=== PATIENT | male | born 1945 | race Caucasian/White ===

== ENCOUNTER 2017-11-06 10:30 | Emergency (ER) | payer MEDICARE ==
[~2017-11-06] VITALS: Ht 182.9 cm; Wt 93.0 kg
[~2017-11-06 10:30] MED LIST: ASPI325T PO; DOCU1CAP39 PO; MILKSUS5 PO; SUPETAB30 PO; VITA10004 PO; VITA500015 PO; XARE10TA PO
[2017-11-06 10:32] VITALS: BP 128/87; PULSE 105; RESP 18; TEMP 97.4; O2SAT 98
[2017-11-06 10:52] VITALS: BP 111/74; PULSE 112; RESP 22; O2SAT 99
[2017-11-06] MEDS ORDERED: SODIUM CHLORIDE 0.9% FLUSH 10 ML FLUSH IVF PRN (11:00)
[2017-11-06] MEDS ORDERED: methylPREDNISolone SOD SUCC 125 MG/2 ML VIAL IV PUSH ONE (11:00)
[2017-11-06] MEDS: RESP: ALBUTEROL 2.5 MG/IPRATROPIUM 0.5 MG NEB (SCH) INH (11:50)
--- NOTE | 2017-11-06 11:52 | RADRPT ---
EXAM DATE/TIME: 11/06/2017 11:14 [place] COMPARISON: No previous studies available for comparison. INDICATIONS : Chest pressure MEDICAL HISTORY : Chronic obstructive pulmonary disease. SURGICAL HISTORY : None. ENCOUNTER: Initial ACUITY: 1 day PAIN SCORE: 2/10 LOCATION: chest FINDINGS: A single view of the chest demonstrates the lungs to be symmetrically aerated without evidence of mas s, infiltrate or effusion. The cardiomediastinal contours are unremarkable. Osseous structures are intact. CONCLUSION: No acute disease. rBian Narayanan MD on November 06, 2017 at 11:49 Board Certified Radiologist. This report was verified electronically.
[2017-11-06 11:55] VITALS: O2SAT 99
[2017-11-06 12:51] VITALS: BP 104/55; PULSE 110; RESP 18; O2SAT 99
[2017-11-06 13:01] LABS: AUTOMATED NEUTROPHIL # 3.3 TH/MM3 (1.8-7.7); BASOPHIL % 0.4 % (0.0-2.0); EOSINOPHIL # 0.2 TH/MM3 (0-0.4); EOSINOPHIL % 3.6 % (0.0-4.0); HEMOGLOBIN 13.8 GM/DL (13.0-17.0); LYMPH % 34.1 % (9.0-44.0); MEAN CELL VOLUME 92.1 FL (80.0-100.0); MEAN CORPUSCULAR HEMOGLOBIN 31.7 PG (27.0-34.0); MEAN CORPUSCULAR HGB CONC 34.4 % (32.0-36.0); MEAN PLATELET VOLUME 9.2 FL (7.0-11.0); MONO % 6.3 % (0.0-8.0); MONOCYTE # 0.4 TH/MM3 (0-0.9); NEUT % 55.6 % (16.0-70.0); PLATELET COUNT 212 TH/MM3 (150-450); RED BLOOD COUNT 4.35 MIL/MM3 (4.50-5.90); RED CELL DISTRIBUTION WIDTH 12.7 % (11.6-17.2); WHITE BLOOD COUNT 5.9 TH/MM3 (4.0-11.0)
--- NOTE | 2017-11-06 13:16 | PD ---
HPI . Chest pain shortness of breath Chief Complaint: Cardiac Complaint Time Seen by Provider: 10:46 Travel History International Travel<30 days: No Contact w/Intl Traveler<30days: No Traveled to known affect area: No History of Present Illness HPI The patient presents with a chief complaint of chest pain shortness of breath for the last 2 weeks. Symptoms have been constant. He denies fever. He reports sputum production but has not looked at it. He rates his chest pain as 6-7/10. There are no modifying factors. This patient does have a history of COPD. He states that he uses albuterol nebs twice a day. He does not take any other medications for his COPD. PFSH Past Medical History Arthritis: Yes Asthma: No Heart Rhythm Problems: Yes (HX OF AFIB POSTOP) Cancer: No Cardiovascular Problems: Yes (HX AFIB-ABLATION) High Cholesterol: No Chest Pain: No Congestive Heart Failure: No COPD: No Cerebrovascular Accident: No Diabetes: No Endocrine: No Gastrointestinal Disorders: No GERD: No Glaucoma: No Genitourinary: No Hepatitis: No Hiatal Hernia: No Hypertension: No Immune Disorder: No Medical other: No Musculoskeletal: Yes (ARTHRITIS,NECK PAIN, BACK PROBLEMS) Neurologic: No Psychiatric: Yes (CLAUSTRAPHOBIA) Reproductive: No Respiratory: No Thyroid Disease: No Past Surgical History Abdominal Surgery: Yes (RIGHT INGUINAL HERNIA) AICD: No Appendectomy: Yes Body Medical Devices: CARDIAC STENT Cardiac Surgery: Yes (ABLATION; ) Ear Surgery: No Endocrine Surgery: No Eye Surgery: No Genitourinary Surgery: No Gynecologic Surgery: No Joint Replacement: Yes (LEFT KNEE) Neurologic Surgery: No Oral Surgery: Yes (T&A) Pacemaker: No Thoracic Surgery: No Tonsillectomy: Yes (T&A) Other Surgery: Yes Social History Alcohol Use: No Tobacco Use: No (Quit 02/2009) Substance Use: No Allergies-Medications (Allergen,Severity, Reaction): Coded Allergies: penicillin G (Unverified Allergy, Severe, Rash, 03/23/17) Reported Meds & Prescriptions Reported Meds & Active Scripts Active Review of Systems Except as stated in HPI: all other systems reviewed are Neg General / Constitutional: No: Fever, Chills Cardiovascular: Positive: Chest Pain or Discomfort Respiratory: Positive: Cough, Shortness of Breath Physical Exam Narrative GENERAL: The patient does not appear to be in any distress. He is lucid. SKIN: warm/dry. Normal color and turgor. HEAD: Normocephalic. Atraumatic. EYES: Pupils equal and round. No scleral icterus. No injection or drainage. ENT: No nasal bleeding or discharge. Mucous membranes pink and moist. NECK: Trachea midline. Full range of motion without pain.. CARDIOVASCULAR: Regular rate and rhythm. Heart sounds are normal. RESPIRATORY: No accessory muscle use. Diffuse expiratory wheezing but good air movement. MUSCULOSKELETAL: No obvious deformities. NEUROLOGICAL: Awake and alert. No obvious cranial nerve deficits. Motor grossly within normal limits. Normal speech. PSYCHIATRIC: Appropriate mood and affect; insight and judgment normal. Data Data Last Documented VS Vital Signs Date Time Temp Pulse Resp B/P (MAP) Pulse Ox O2 Delivery O2 Flow Rate FiO2 11/06/17 12:51 110 18 104/55 (71) 99 Room Air 11/06/17 11:55 21 11/06/17 10:32 97.4 Orders Orders Complete Blood Count With Diff (11/06/17 10:46) Basic Metabolic Panel (Bmp) (11/06/17 10:46) B-Type Natriuretic Peptide (11/06/17 10:46) Troponin I (11/06/17 10:46) Blood Culture (11/06/17 10:46) Iv Access Insert/Monitor (11/06/17 10:46) Electrocardiogram (11/06/17 10:46) Ecg Monitoring (11/06/17 10:46) Oximetry (11/06/17 10:46) Oxygen Administration (11/06/17 10:46) Chest, Single Ap (11/06/17 10:46) Sodium Chloride 0.9% Flush (Ns Flush) (11/06/17 11:00) Methylprednisolone So Succ Inj (Solumedr (11/06/17 11:00) Albuterol-Ipratropium Neb (Duoneb Neb) (11/06/17 11:00) Labs Laboratory Tests Test 11/06/17 11:05 White Blood Count 5.9 TH/MM3 Red Blood Count 4.35 MIL/MM3 Hemoglobin 13.8 GM/DL Hematocrit 40.0 % Mean Corpuscular Volume 92.1 FL Mean Corpuscular Hemoglobin 31.7 PG Mean Corpuscular Hemoglobin Concent 34.4 % Red Cell Distribution Width 12.7 % Platelet Count 212 TH/MM3 Mean Platelet Volume 9.2 FL Neutrophils (%) (Auto) 55.6 % Lymphocytes (%) (Auto) 34.1 % Monocytes (%) (Auto) 6.3 % Eosinophils (%) (Auto) 3.6 % Basophils (%) (Auto) 0.4 % Neutrophils # (Auto) 3.3 TH/MM3 Lymphocytes # (Auto) 2.0 TH/MM3 Monocytes # (Auto) 0.4 TH/MM3 Eosinophils # (Auto) 0.2 TH/MM3 Basophils # (Auto) 0.0 TH/MM3 CBC Comment DIFF FINAL Differential Comment Blood Urea Nitrogen 16 MG/DL Creatinine 1.13 MG/DL Random Glucose 84 MG/DL Calcium Level 8.7 MG/DL Sodium Level 143 MEQ/L Potassium Level 4.1 MEQ/L Chloride Level 111 MEQ/L Carbon Dioxide Level 27.0 MEQ/L Anion Gap 5 MEQ/L Estimat Glomerular Filtration Rate 63 ML/MIN Troponin I LESS THAN 0.02 NG/ML B-Type Natriuretic Peptide 43 PG/ML MDM Medical Decision Making Medical Screen Exam Complete: Yes Emergency Medical Condition: Yes Medical Record Reviewed: Yes ( PMH of COPD, AF, pacer, CAD, HL, tob abuse) Interpretation(s) EKG showed atrial fibrillation with a controlled ventricular response of 80. No ST segment elevation or depression. Differential Diagnosis Differential diagnosis of dyspnea includes but is not limited to congestive heart failure, pneumonia, wheezing, pneumothorax, pulmonary embolism Narrative Course This patient presents with chest pain shortness of breath. He is wheezing on exam. He has a history of COPD. An IV was started he was given Solu-Medrol. Stacked nebs have been done. In the meantime, a cardiac evaluation has been initiated. Last Impressions Chest X-Ray 11/06/17 1046 Signed Impressions: Service Date/Time: Monday, November 06, 2017 11:14 - CONCLUSION: No acute disease. Brian Narayanan MD CBC Diagram 11/06/17 11:05 BMP Diagram 11/06/17 11:05 Calcium Level 8.7 trop < 0.02 BNP 43 Vital Signs Date Time Temp Pulse Resp B/P (MAP) Pulse Ox O2 Delivery O2 Flow Rate FiO2 11/06/17 12:51 110 18 104/55 (71) 99 Room Air 11/06/17 11:55 99 21 11/06/17 10:52 112 22 111/74 (86) 99 Room Air 11/06/17 10:52 99 Room Air 11/06/17 10:52 112 22 111/74 (86) 99 Room Air 11/06/17 10:32 97.4 105 18 128/87 (101) 98 This patient has been symptomatic for 2 weeks. His troponin is normal. The likelihood of this being cardiac is very slim as it has been an ongoing problem for 2 weeks. In the meantime, the patient was treated with Solu-Medrol and nebulizer therapy. His oxygenation has remained at 99% on room air. He is not having any difficulty breathing. I will discharge him to home. Diagnosis Primary Impression: Chest pain Qualified Codes: R07.9 - Chest pain, unspecified Additional Impressions: Dyspnea Qualified Codes: R06.00 - Dyspnea, unspecified COPD exacerbation Patient Instructions: COPD (Chronic Obstructive Pulmonary Disease) (DC), General Instructions Med/Other Pt SpecificInfo: Prescription(s) given Scripts Guaifenesin ER 12 HR (Guaifenesin ER 12 HR) 1,200 Mg Paz 1200 MG PO BID for Chest Congestion/Cough, #60 TAB 0 Refills Prov: Beulah Singer MD 11/06/17 Prednisone (Prednisone) 50 Mg Tab 50 MG PO DAILY for 5 Days, #5 TAB 0 Refills Prov: Beulah Singer MD 11/06/17 Ipratropium-Albuterol Neb (Duoneb) 0.5-2.5 Mg/3 Ml Neb 1 NEBULE INH Q4HR NEB for SHORTNESS OF BREATH, #120 NEBULE 0 Refills Prov: Beulah Singer MD 11/06/17 Disposition: 01 DISCHARGE HOME Condition: Stable Beulah Singer MD Nov 06, 2017 13:16
[2017-11-06 13:29] LABS: TROPONIN I LESS THAN 0.02 NG/ML (0.02-0.05)
[2017-11-06 13:30] LABS: BLOOD UREA NITROGEN 16 MG/DL (7-18); CALCIUM 8.7 MG/DL (8.5-10.1); CHLORIDE 111 MEQ/L (98-107); CREATININE 1.13 MG/DL (0.60-1.30); GLOMERULAR FILTRATION RATE 63 ML/MIN (>89); GLUCOSE,RANDOM 84 MG/DL (74-106); SODIUM (NA) 143 MEQ/L (136-145)
[2017-11-06] MEDS ORDERED: PRED50 PO (13:57)
[2017-11-06] MEDS ORDERED: IPRASOL INH (13:57)
[2017-11-06] MEDS ORDERED: GUAI10TA PO (13:57)
[2017-11-06 15:01] VITALS: BP 121/62
--- NOTE | 2017-11-07 12:31 | EKG ---
Date Performed: 11/06/2017 Time Performed: 11:58:43 PTAGE: 72 years EKG: ATRIAL FIBRILLATION BORDERLINE LEFT AXIS DEVIATION ABNORMAL RHYTHM ECG Compared to PREVIOUS TRACING , atrial fibrillation has replaced Sinus rhythm . PREVIOUS TRACIN06/07/2013 03.48 DOCTOR: Drew Ott Interpretating Date/Time 11/07/2017 12:29:36
== END 2017-11-06 15:02 | disposition home or self-care (01) ==
LOC: NEPC 10:30
DX: R07.9 Chest pain, unspecified (principal); J44.1 Chronic obstructive pulmonary disease with (acute) exacerbation; I48.91 Unspecified atrial fibrillation; M19.90 Unspecified osteoarthritis, unspecified site; R94.31 Abnormal electrocardiogram [ECG] [EKG]; Z87.891 Personal history of nicotine dependence; Z88.0 Allergy status to penicillin
CPT/HCPCS: 71045; 80048; 83880; 84484; 85025; 87040; 93005; 94640; 94664; 96374; 99285; J2930